=== PATIENT | male | born 1980 | race Caucasian/White ===

== ENCOUNTER → 2022-01-17 07:07 | Outpatient (CLI) | payer OTHER, SELFPAY ==
--- NOTE | 2022-01-17 | DI.MRI.S_ITS ---
PROCEDURE: MR FOOT RT WO CON INDICATIONS: INTERDIGITAL NEUROMA OF RIGHT FOOT TECHNIQUE: Noncontrast long-axis T1 spin echo and T2 fast spin echo with fat saturation, short-axis T1 spin echo with and without fat saturation and T2 fast spin echo with fat saturation through the forefoot. COMPARISON: None. FINDINGS: Image quality: Excellent. Bones and joints: No bone marrow contusions or metatarsal stress fractures. There is a bipartite medial hallux sesamoid with internal edema. Minimal degenerative changes are seen at the 1st metatarsophalangeal joint and in the interphalangeal joints of the toes. Soft tissues: A thin band of T2-hyperintense fluid is seen in the interspace between the 3rd and 4th metatarsal heads which is more prominent posterior and dorsally. Intermetatarsal bursal effusions are also seen at the 1st and 2nd interspaces. No definite interdigital solid mass is seen in the absence of intravenous contrast material. A ganglion cyst is seen plantar to the 3rd metatarsophalangeal joint measuring approximately the 0.7 x 0.3 x 0.5 cm. A small ganglion cyst is seen at the interspace between the 3rd and 4th metatarsal bases measuring approximately 1.1 x 0.3 x 0.5 cm. The visualized plantar foot muscles demonstrate normal signal and bulk. Visualized flexor and extensor tendons appear intact, without tenosynovitis. The distal insertions of the peroneus brevis and longus tendons appear intact. The principal Lisfranc ligament appears intact. IMPRESSION: 1. No interdigital solid mass identified. Small intermetatarsal bursal effusion is seen at the interspace between the 3rd and 4th metatarsal heads and to a lesser extent at the 1st and 2nd web spaces. 2. Small ganglion cyst plantar to the 3rd metatarsophalangeal joint measures up to 0.7 cm. Additional small ganglion cyst is seen between the 3rd and 4th metatarsal bases. 3. Osseous edema within the medial hallux sesamoid may be related to an osseous contusion, degenerative changes, or sesamoiditis. Dictated by: Lam Mendenhall M.D. on 01/17/2022 at 8:53 Approved by: Lam Mendenhall M.D. on 01/17/2022 at 9:03
== END ==
PROVIDERS: Referring Provider Orthopaedic Surgery Foot and Ankle Surgery; Visit Provider Orthopaedic Surgery Foot and Ankle Surgery
DX: G57.81 Other specified mononeuropathies of right lower limb (principal); M67.471 Ganglion, right ankle and foot; M25.474 Effusion, right foot
CPT/HCPCS: 73718

== ENCOUNTER → 2023-09-11 13:41 | Outpatient (CLI) | payer OTHER, SELFPAY ==
[2023-09-11 14:58] LABS: Semen Sperm Prescence Post-Vas Absent (ABSENT)
== END ==
PROVIDERS: Referring Provider Specialist; Visit Provider Specialist
DX: Z98.52 Vasectomy status (principal)
CPT/HCPCS: 89321

== ENCOUNTER 2024-10-18 14:07 | Outpatient (RCR) | payer OTHER, SELFPAY ==
--- NOTE | 2024-10-18 16:00 | PT.OIE ---
Current Diagnoses Overactive bladder (10/18/24) Nocturia (10/18/24) Urgency of urination (10/18/24) Unspecified symptoms and signs involving the genitourinary system (10/18/24) Past Medical History (Last Reviewed 08/30/24 @ 19:09 by Honorio Engel DO) Encounter for sterilization Sterilization consult Visit Care Team Role Provider Type [facility] Provider Family Provider Facility Primary Care Provider Specialty: Family Practice Address: Phone: Email: Honorio Engel DO Attending Provider Physician Referring Provider Specialty: Urology Address: [address] [place] [address], [id number] Fax: Email: Physical Therapy Initial Evaluation PT-OP-A Visit Information Start: 10/18/24 10:20 Freq: Status: Active Protocol: Document 10/18/24 14:34 [facility] (Rec: 10/18/24 15:16 [facility] [id number]) Out-Patient Physical Therapy Visit Information Visit Information Visit Type Initial Evaluation Visit Start Time 14:35 Visit Stop Time 15:15 Visit Number 1 PT-OP-B Current Condition Start: 10/18/24 10:20 Freq: Status: Active Protocol: Document 10/18/24 16:45 [facility] (Rec: 10/18/24 16:51 [facility] [id number]) Current Condition History of Current Condition Onset Date 2021 Current Complaints nocturia, urinary urgency and frequency History of Current Condition Lam reports c/o nocturia 1- 3 times per night, urinary frequency and urgency, and a weak to medium strength urinary stream. He reports the night time symptoms are the most bothersome to him as he feels as if he is not able to get his full night sleep. He states he will often void just in case prior to leaving the house or before a drive or outing. He notes he is emptying his bladder much more than his colleagues. He does feel at times he is not fully emptying his bladder. With fluid intake Lam notes he drinks 2 16 oz cups of coffee per day. The first one being in the am following his shake that he has for breakfast and the next one being prior to his workout around 12. He notes he is usually done with his coffee by 2:00 pm and does try to restrict fluids several hours prior to bed. He feels is voiding approx every 1-1.5 hours during the day Treatment Goals Patient/Caregiver Goals Goals include decreasing nocturia and frequency/urgency of voiding PT-OP-F Manual Assessment Start: 10/18/24 10:20 Freq: Status: Active Protocol: Document 10/18/24 16:51 [facility] (Rec: 10/18/24 16:51 [facility] [id number]) Manual Assessments Soft Tissue Assessment Soft Tissue Mobility Assessment tightness of the hip ER/ piriformis muscle bilaterally PT-OP-I Pelvic Floor Start: 10/18/24 10:20 Freq: Status: Active Protocol: Document 10/18/24 14:30 [facility] (Rec: 10/19/24 12:52 [facility] [id number]) Pelvic Floor Assessment Urine Pelvic Floor Surgery No Urinary Symptoms Urge Sensation,Hesitancy, Incomplete Emptying Contraction Ability Voluntary Contraction Moderate Voluntary Relaxation Moderate Comments Pelvic Floor Comments Lam was able to facilitate contraction of his pelvic floor and could feel muscle contraction, no pain noted, no symptoms of urinary leakage. PT-OP-K Range of Motion Start: 10/18/24 10:20 Freq: Status: Active Protocol: Document 10/18/24 14:30 [facility] (Rec: 10/19/24 12:50 [facility] [id number]) Hip Goniometric Range of Motion Hip ROM Limitations Hip ROM Limitations Soft Tissue Tightness Comments restrictions in piriformis length bilaterally, tightness into hip ER PT-OP-Q Treatments Start: 10/18/24 10:20 Freq: Status: Active Protocol: Document 10/18/24 14:30 [facility] (Rec: 10/18/24 16:43 [facility] [id number]) Therapeutic Exercises Supine Exercises piriformis stretch Reps/Minutes hold 1-2 minutes pelvic floor stretch in modified squat position Reps/Minutes hold 1-2 min Self-Care/Home Management Treatment Education Patient Education Home Exercise Program Other Education Lam was educated in urge deference technique for retraining of the bladder, he was educated on bladder irritants and we reviewed what he was drinking daily He was given a bladder diary to keep track of his voids He was educated on pelvic floor relaxation when sitting to void PT-OP-T Assessment and Plan Start: 10/18/24 10:20 Freq: Status: Active Protocol: Document 10/18/24 16:45 [facility] (Rec: 10/18/24 16:52 [facility] [id number]) Physical Therapy Assessment Rehab Potential Rehabilitation Potential Good Evaluation Complexity Number of Personal Factors/Comorbidities 0 Number of Body Systems Impaired 1-2 Clinical Presentation at Evaluation Stable Impairments Impairments Activity Tolerance,Soft Tissue Mobility Other Impairments urinary urgency/frequency/ nocturia Goals 3 Impairment Lam lacks a home program for urge deference technique and stretches for the hips and pelvic floor to promote full bladder emptying Fpc Goal (LTG) Lam is able to utilize the urge deference technique to decrease his voids to every 2 -3 hours and he is independent with a home stretching program to help with hip ER tightness and pelvic floor relaxation LTG Duration 12 weeks 2 Impairment dietary habits of fluid intake that may be contributing to bladder irritation and urinary urgency/frequency Short Term Goal (STG) Lam is educated on bladder irritants and how they contribute to urinary urgency and frequency STG Duration 1 weeks 1 Impairment nocturia with pt waking up to void 1-3 times per night along with urgency and frequency Fpc Goal (LTG) Lam reports a overall reduction of urgency and frequency during the day and is down to waking 0-1 times per night to void LTG Duration 12 weeks Assessment Summary Assessment Lam is a 43 year old male referred to PT with chief complaints of nocturia, urinary urgency and frequency and a weak urinary stream. He reports his symptoms have been worsening since 2021. He reports he often finds himself voiding just in case prior to leaving the house or prior to a activity. He denies any urinary leakage or any pain associated with his pelvic floor. He does have a history of low back pain that he manages with exercise and that does not limit his activity levels. Fluid intake was reviewed and pt drinks the equivalent of 4 caffeine beverages per day. We discussed bladder irritants and how this can affect urinary urgency and he was given a bladder diary to record his intake of fluids as well as voids. Lam was educated on pelvic floor relaxation exercises. He reports he has a very tight schedule with his job as a [employer] and has approx 1 hour for exercise per day and this does not give him time to stretch. Time was spent on education of pelvic floor relaxation for the ability to fully void and that elevated tension in the pelvic floor can contribute to urgency. Manual assessment was performed for hip ROM which was WNL with the exception of piriformis tightness B. He was given a happy baby stretch to help relax the pelvic floor as well as piriformis stretch and he felt he could fit these into his day. He was educated on taking time to void ( he notes he often rushes) to focus on pelvic floor relaxation and full bladder emptying. Lam was instructed on bladder retraining to control urgency and frequency and trying to eliminate the voiding just in case. Lam felt good about this home program and was willing to cut back on his caffeine levels to try and decrease bladder irritation. He will try to work on these stretches and techniques at home and will follow up should he have any further questions or feel he needs additional visits. Physical Therapy Plan Frequency and Duration Frequency of Treatment Every Other Week Duration of treatment (weeks) 12 Plan of Care Start Date 10/18/24 Plan of Care End Date 01/10/25 Therapeutic Interventions Therapeutic Interventions Home Exercise Program, Neuromuscular Re-education, Patient/Caregiver Education, Self-Care/Home Management, Therapeutic Exercises Next Visit Focus/Plan Next Note Type Treatment Note Next Visit Plan Review bladder diary, urge deference technique, stretches for the pelvic floor and how Lam is doing with decreasing caffeine levels throughout the day
--- NOTE | 2025-05-31 08:33 | PT.OPDS ---
Current Diagnoses Overactive bladder (10/18/24) Nocturia (10/18/24) Urgency of urination (10/18/24) Unspecified symptoms and signs involving the genitourinary system (10/18/24) Visit Care Team Role Provider Type Corey REID Provider Family Provider Facility Primary Care Provider Specialty: Family Practice Address: Phone: Email: Honorio Engel DO Attending Provider Physician Referring Provider Specialty: Urology Address: [address] [place] [address], [facility] Fax: Email: [email or web address] Visit Number Visit Number 1 Discharge Summary PT-OP-A Visit Information Start: 10/18/24 10:20 Freq: Status: Active Protocol: Document 10/18/24 14:34 [facility] (Rec: 10/18/24 15:16 [facility] [id number]) Out-Patient Physical Therapy Visit Information Visit Information Visit Type Initial Evaluation Visit Start Time 14:35 Visit Stop Time 15:15 Visit Number 1 PT-OP-B Current Condition Start: 10/18/24 10:20 Freq: Status: Active Protocol: Document 10/18/24 16:45 [facility] (Rec: 10/18/24 16:51 [facility] [id number]) Current Condition History of Current Condition Onset Date 2021 Current Complaints nocturia, urinary urgency and frequency History of Current Lam reports c/o nocturia 1-3 times per night, Condition urinary frequency and urgency, and a weak to medium strength urinary stream. He reports the night time symptoms are the most bothersome to him as he feels as if he is not able to get his full night sleep. He states he will often void just in case prior to leaving the house or before a drive or outing. He notes he is emptying his bladder much more than his colleagues. He does feel at times he is not fully emptying his bladder. With fluid intake Lam notes he drinks 2 16 oz cups of coffee per day. The first one being in the am following his shake that he has for breakfast and the next one being prior to his workout around 12. He notes he is usually done with his coffee by 2:00 pm and does try to restrict fluids several hours prior to bed . He feels is voiding approx every 1-1.5 hours during the day Treatment Goals Patient/Caregiver Goals include decreasing nocturia and frequency/urgency Goals of voiding PT-OP-F Manual Assessment Start: 10/18/24 10:20 Freq: Status: Active Protocol: Document 10/18/24 16:51 [facility] (Rec: 10/18/24 16:51 [facility] [id number]) Manual Assessments Soft Tissue Assessment Soft Tissue Mobility tightness of the hip ER/piriformis muscle bilaterally Assessment PT-OP-I Pelvic Floor Start: 10/18/24 10:20 Freq: Status: Active Protocol: Document 10/18/24 14:30 [facility] (Rec: 10/19/24 12:52 [facility] [id number]) Pelvic Floor Assessment Urine Pelvic Floor Surgery No Urinary Symptoms Urge Sensation,Hesitancy,Incomplete Emptying Contraction Ability Voluntary Moderate Contraction Voluntary Relaxation Moderate Comments Pelvic Floor Lam was able to facilitate contraction of his pelvic Comments floor and could feel muscle contraction, no pain noted , no symptoms of urinary leakage. PT-OP-K Range of Motion Start: 10/18/24 10:20 Freq: Status: Active Protocol: Document 10/18/24 14:30 [facility] (Rec: 10/19/24 12:50 [facility] [id number]) Hip Goniometric Range of Motion Hip ROM Limitations Hip ROM Limitations Soft Tissue Tightness Comments restrictions in piriformis length bilaterally, tightness into hip ER PT-OP-T Assessment and Plan Start: 10/18/24 10:20 Freq: Status: Active Protocol: Document 05/31/25 08:30 [facility] (Rec: 05/31/25 08:32 [facility] [id number]) Physical Therapy Assessment Goals 3 Impairment Lam lacks a home program for urge deferrence technique and stretches for the hips and pelvic floor to promote full bladder emptying Remodeler Goal (LTG) Lam is able to utilize the urge deference technique to decrease his voids to every 2 -3 hours and he is independent with a home stretching program to help with hip ER tightness and pelvic floor relaxation LTG Duration 12 weeks 2 Impairment dietary habits of fluid intake that may be contributing to bladder irritation and urinary urgency/frequency Short Term Goal (STG Lam is educated on bladder irritants and how they ) contribute to urinary urgency and frequency STG Duration 1 weeks 1 Impairment nocturia with pt waking up to void 1-3 times per night along with urgency and frequency Long-Term Goal (LTG) Lam reports a overall reduction of urgency and frequency during the day and is down to waking 0-1 times per night to void LTG Duration 12 weeks Assessment Summary Assessment Lam is a 43 year old male referred to PT with chief complaints of nocturia, urinary urgency and frequency and a weak urinary stream. He reports his symptoms have been worsening since 2021. He reports he often finds himself voiding just in case prior to leaving the house or prior to a activity. He denies any urinary leakage or any pain associated with his pelvic floor. He does have a history of low back pain that he manages with exercise and that does not limit his activity levels. Fluid intake was reviewed and pt drinks the equivalent of 4 caffeinated beverages per day. We discussed bladder irritants and how this can affect urinary urgency and he was given a bladder diary to record his intake of fluids as well as voids. Lam was educated on pelvic floor relaxation exercises. He reports he has a very tight schedule with his job as a [employer] and has approx 1 hour for exercise per day and this does not give him time to stretch. Time was spent on education of pelvic floor relaxation for the ability to fully void and that elevated tension in the pelvic floor can contribute to urgency. Manual assessment was performed for hip ROM which was WNL with the exception of piriformis tightness B. He was given a happy baby stretch to help relax the pelvic floor as well as piriformis stretch and he felt he could fit these into his day. He was educated on taking time to void ( he notes he often rushes) to focus on pelvic floor relaxation and full bladder emptying. Lam was instructed on bladder retraining to control urgency and frequency and trying to eliminate the voiding just in case. Lam felt good about this home program and was willing to cut back on his caffeine levels to try and decrease bladder irritation. He will try to work on these stretches and techniques at home and will follow up should he have any further questions or feel he needs additional visits. Lam has not been seen since his initial visit and will be DC from PT at this time Physical Therapy Plan Discharge Physical Therapy Discharge Comments pt seen x 1 visit only for education on importance of pelvic floor relaxation with voiding and education on bladder irritants as well as urge deference technique and bladder retraining
== END 2025-05-31 10:58 | disposition home or self-care (01) ==
LOC: PHYS 14:07
PROVIDERS: Referring Provider Urology; Visit Provider Urology
DX: R39.15 Urgency of urination (principal); R35.1 Nocturia; N32.81 Overactive bladder; R39.9 Unspecified symptoms and signs involving the genitourinary system
CPT/HCPCS: 97110; 97161; 97535